=== PATIENT | female | born 1985 | race Caucasian/White ===

== ENCOUNTER → 2018-08-13 | Outpatient (REF) | payer OTHER ==
[2018-08-13 22:09] LABS: CHLAMYDIA DNA AMPLIFICATION NEGATIVE (NEGATIVE); GC DNA AMPLIFICATION NEGATIVE (NEGATIVE)
== END ==
LOC: M SFHCLERA 14:06
PROVIDERS: ATTEND Nurse Practitioner Family
DX: R30.0 Dysuria (principal)

== ENCOUNTER 2018-08-23 11:13 | Emergency (ER) | payer OTHER ==
[~2018-08-23] VITALS: Ht 170.2 cm; Wt 122.7 kg
[2018-08-23] MEDS ORDERED: KETOROLAC 60 MG/2 ML VIAL (J1885) IM ONE (12:00)
[2018-08-23] MEDS ORDERED: ACETAMINOPHEN TAB 650MG DOSE (2X325MG) PO ONE (12:00)
--- NOTE | 2018-08-23 12:44 | REP ---
CT cervical spine without contrast HISTORY: Bone tenderness COMPARISON: None There is no acute fracture or subluxation. There is no disc bulge or herniation. The spinal canal and neural foramina are patent. The intervertebral discs and vertebral bodies are normal in height. IMPRESSION: There is no acute fracture or subluxation. Electronically Signed by Eddie Graf MD 08/23/2018 12:36 P
[2018-08-23] MEDS ORDERED: IBUP-1022 PO (12:54)
[2018-08-23] MEDS ORDERED: CYCL7.5T32 PO (12:54)
[2018-08-23 13:06] VITALS: BP 111/72
== END 2018-08-23 13:20 | disposition home or self-care (01) ==
LOC: M ED 11:13
DX: S29.012A Strain of muscle and tendon of back wall of thorax, initial encounter (principal); X58.XXXA Exposure to other specified factors, initial encounter; Y92.89 Other specified places as the place of occurrence of the external cause; F33.9 Major depressive disorder, recurrent, unspecified; F41.9 Anxiety disorder, unspecified
CPT/HCPCS: 72125; 96372; 99283; J1885

== ENCOUNTER → 2020-02-05 | Outpatient (REF) | payer OTHER, MEDICAID ==
[~2020-02-05] MED LIST: CYCL7.5T32 PO; IBUP-1022 PO
[2020-02-05 17:31] LABS: BASO % 0.3 % (0.0-1.0); EOS # 0.2 10^3/uL (0.0-0.5); EOS % 1.9 % (0.0-3.0); HEMATOCRIT 42.6 % (36.0-47.0); HEMOGLOBIN 13.8 g/dl (12.0-15.5); LYMPH # 1.9 10^3/uL (1.5-5.0); LYMPH % 22.2 % (24.0-44.0); MEAN CORPUSCULAR HEMOGLOBIN 29.2 pg (27.0-33.0); MEAN CORPUSCULAR HGB CONC 32.4 g/dl (32.0-36.5); MEAN CORPUSCULAR VOLUME 90.1 fl (80.0-96.0); MONO # 0.4 10^3/uL (0.0-0.8); NEUTROPHILS % 70.3 % (36.0-66.0); RED BLOOD COUNT 4.73 10^6/uL (4.00-5.40); WHITE BLOOD COUNT 8.6 10^3/uL (4.0-10.0)
[2020-02-05 17:51] LABS: ALBUMIN 3.8 GM/DL (3.2-5.2); ALT/SGPT 25 U/L (12-78); BILIRUBIN,TOTAL 0.5 MG/DL (0.2-1.0); BLOOD UREA NITROGEN 15 MG/DL (7-18); CALCIUM LEVEL 9.2 MG/DL (8.5-10.1); CARBON DIOXIDE LEVEL 24 MEQ/L (21-32); CHLORIDE LEVEL 106 MEQ/L (98-107); CHOLESTEROL LEVEL 220 MG/DL (<200); CHOLESTEROL RISK RATIO 3.492 (<5); CREATININE FOR GFR 0.69 MG/DL (0.55-1.30); GLOMERULAR FILTRATION RATE > 60.0 (>60); GLUCOSE, FASTING 74 MG/DL (70-100); HDL CHOLESTEROL 63 MG/DL (>40); LDL CHOLESTEROL 136 MG/DL (<100); NON-HDL-C 157 MG/DL; SODIUM LEVEL 137 MEQ/L (136-145); TOTAL PROTEIN 7.5 GM/DL (6.4-8.2); TRIGLYCERIDES LEVEL 103 MG/DL (<150)
== END ==
LOC: M LAB REF 16:22
PROVIDERS: ATTEND Physician Assistant
DX: Z68.42 Body mass index [BMI] 45.0-49.9, adult (principal)

== ENCOUNTER → 2020-02-25 | Outpatient (REF) | payer OTHER, MEDICAID | LOC: M LAB REF 16:00 | PROVIDERS: ATTEND Physician Assistant | DX: Z01.419 Encounter for gynecological examination (general) (routine) without abnormal findings (principal) ==

== ENCOUNTER → 2020-06-14 | Outpatient (REF) | payer OTHER, MEDICAID ==
[2020-06-14 16:37] LABS: BASO % 0.4 % (0.0-1.0); EOS # 0.1 10^3/uL (0.0-0.5); EOS % 1.7 % (0.0-3.0); HEMATOCRIT 40.5 % (36.0-47.0); HEMOGLOBIN 13.4 g/dl (12.0-15.5); LYMPH # 2.5 10^3/uL (1.5-5.0); LYMPH % 30.2 % (24.0-44.0); MEAN CORPUSCULAR HGB CONC 33.1 g/dl (32.0-36.5); MEAN CORPUSCULAR VOLUME 90.6 fl (80.0-96.0); MONO # 0.5 10^3/uL (0.0-0.8); MONO % 5.7 % (2.0-8.0); NEUTROPHILS # 5.2 10^3/uL (1.5-8.5); NEUTROPHILS % 61.8 % (36.0-66.0); PLATELET COUNT, AUTOMATED 273 10^3/uL (150-450); RED BLOOD COUNT 4.47 10^6/uL (4.00-5.40); WHITE BLOOD COUNT 8.4 10^3/uL (4.0-10.0)
== END ==
LOC: M LAB REF 16:14
PROVIDERS: ATTEND Physician Assistant
DX: N92.6 Irregular menstruation, unspecified (principal)

== ENCOUNTER → 2020-06-19 | Outpatient (CLI) | payer OTHER, MEDICAID ==
[~2020-06-19] MED LIST changes: +FLUO20CA22; +FLUT44IN INH
== END ==
LOC: M LABSMTC 10:34
PROVIDERS: ATTEND Anesthesiology
DX: Z01.818 Encounter for other preprocedural examination (principal); Z11.52 Encounter for screening for COVID-19

== ENCOUNTER 2020-06-24 07:06 | Day surgery (SDC) | payer OTHER ==
[~2020-06-24] VITALS: Ht 170.2 cm; Wt 138.3 kg
[~2020-06-24 07:06] MED LIST changes: +LIDOCAINE 1% MDV 20ML VIAL SQ PRN; +LR 1,000 ML IV ONE; +ceFAZolin SOD 2 GM in IV 1 EA IV ONE
[2020-06-24] MEDS ORDERED: ONDANSETRON 4MG/2ML VIAL As Ordered ONE (07:56)
[2020-06-24] MEDS ORDERED: propofoL 200 MG/20 ML VIAL As Ordered ONE (07:56)
[2020-06-24] MEDS ORDERED: fentaNYL 100 MCG/2 ML INJECTION (J3010) As Ordered ONE ×2 (07:56→09:09)
[2020-06-24] MEDS ORDERED: LIDOCAINE 2% 100MG/5ML SDV (FOR ANES.) As Ordered ONE (07:56)
[2020-06-24] MEDS ORDERED: MIDAZOLAM INJ 2MG/2ML VIAL (J2250 PER 1MG) As Ordered ONE (07:56)
[2020-06-24] MEDS ORDERED: ROCURONIUM BROMIDE 50 MG/5 ML VIAL As Ordered ONE ×3 (07:56→10:19)
[2020-06-24] MEDS ORDERED: dexameTHASONE 4 MG/ML 1ML VIAL (J1100 PER 1MG) As Ordered ONE (07:57)
[2020-06-24 08:08] LABS: HEMATOCRIT 41.8 % (36.0-47.0); HEMOGLOBIN 14.2 g/dl (12.0-15.5); MEAN CORPUSCULAR VOLUME 88.4 fl (80.0-96.0); PLATELET COUNT, AUTOMATED 280 10^3/uL (150-450); RED BLOOD COUNT 4.73 10^6/uL (4.00-5.40); WHITE BLOOD COUNT 7.9 10^3/uL (4.0-10.0)
[2020-06-24] MEDS ORDERED: METHYLENE BLUE 0.5% (5MG/ML) 10 ML AMP (PROVAYBLUE) As Ordered ONE (08:11)
[2020-06-24] MEDS ORDERED: ACETAMINOPHEN 1000MG 100ML IV BTL (OFIRMEV) (J0131 PER 10MG) As Ordered ONE (09:00)
[2020-06-24] MEDS ORDERED: FLUoxetine 20 MG CAP PO SCH (09:00)
[2020-06-24] MEDS ORDERED: KETOROLAC 60MG 2ML VIAL As Ordered ONE (09:08)
[2020-06-24] MEDS ORDERED: SUGAMMADEX SODIUM 500 MG/5 ML VIAL (BRIDION) As Ordered ONE (09:08)
[2020-06-24] MEDS ORDERED: HYDROmorphone HCL 2 MG/ML 1ML VIAL (J1170) As Ordered ONE (10:24)
[2020-06-24] MEDS ORDERED: ePHEDrine SULFATE 25 MG/5 ML(5MG/ML) SYRINGE As Ordered ONE (11:42)
[2020-06-24] MEDS ORDERED: ALBUTEROL 6.7GM INHALER **FOR ANES. CART/OMNICELL ONLY As Ordered ONE (11:50)
[2020-06-24] MEDS ORDERED: LR 1,000 ML IV SCH ×2 (12:25→12:35)
[2020-06-24] MEDS ORDERED: PERCOCET 5MG/325MG TAB PO PRN (12:25)
[2020-06-24] MEDS ORDERED: ONDANSETRON 4MG/2ML VIAL IV PRN (12:25)
[2020-06-24] MEDS ORDERED: HYDROMORPHONE HCL 0.5 MG/ 0.5 ML SYRINGE (J1170 PER 1) IV PRN (12:25)
[2020-06-24] MEDS ORDERED: METOCLOPRAMIDE INJ 10MG/2ML VIAL (J2765 PER 1) IV PRN (12:25)
[2020-06-24] MEDS ORDERED: fentaNYL 100 MCG/2 ML INJECTION (J3010) IV PRN (12:25)
[2020-06-24] MEDS ORDERED: MORPHINE 1MG/ML IN 0.9% NACL 100ML IV BAG IV PRN (12:30)
[2020-06-24] MEDS ORDERED: NALBUPHINE HCL 10 MG/ML AMP (J2300) IV PRN (12:30)
[2020-06-24] MEDS ORDERED: NALOXONE INJ 0.4MG/1ML VIAL (J2310 PER 1MG) IV PRN (12:30)
[2020-06-24] MEDS ORDERED: diphenhydrAMINE 50MG/ML VIAL (J1200) IV PRN (12:30)
[2020-06-24] MEDS ORDERED: EPIDURAL/PCA KEYS XX PRN (12:30)
[2020-06-24] MEDS ORDERED: MORPHINE 1MG/ML IN 0.9% NACL 100ML IV BAG As Ordered ONE (12:31)
[2020-06-24] MEDS ORDERED: IBUPROFEN 600MG TAB PO PRN (12:35)
[2020-06-24 13:25] VITALS: BP 109/62
[2020-06-24 13:50] VITALS: BP 124/65
[2020-06-24 14:50] VITALS: BP 123/65
[2020-06-24 15:50] VITALS: BP 105/63
[2020-06-24 16:50] VITALS: BP 106/63
[2020-06-24 17:50] VITALS: BP 123/79
[2020-06-24 18:30] LABS: HEMATOCRIT 38.7 % (36.0-47.0); HEMOGLOBIN 12.8 g/dl (12.0-15.5)
[2020-06-25] MEDS ORDERED: NORCO, ANEXSIA 5/325MG TABLET (HYDROcodone/ACETAMINOPHEN) PO PRN (06:00)
--- NOTE | 2020-06-25 13:53 | RO ---
OPERATIVE NOTE DATE OF OPERATION: 06/24/2020 PREOPERATIVE DIAGNOSIS/INDICATIONS FOR SURGERY: Pain, bleeding and failed ablation. POSTOPERATIVE DIAGNOSIS: Pain, bleeding and failed ablation, extensive very atypical adhesions, photos of the case were taken, these atypical adhesions which doubled the length of the case are photographed. PROCEDURE: Robotic-assisted hysterectomy with bilateral salpingectomy, lysis of adhesions and cystourethroscopy. SURGEON: Sherlyn Caceres MD EMBROIDERY PATTERNMAKER: Maame Fernandez ANESTHESIA: General endotracheal anesthesia. BRIEF DESCRIPTION OF PROCEDURE AND FINDINGS: Heydi was brought to the operating room where sufficient general endotracheal anesthesia was induced. She was prepped, draped and positioned in usual sterile fashion. With the uterine manipulator placed the uterus was quite well supported which we already noted in the office and of course [place] with ability to back-fill was placed. We then turned our attention to the abdomen. Transverse semilunar incision was made below the umbilicus, sharp and blunt dissection were continued through subcutaneous tissues to the level of the rectus fascia which was transversely incised and secured with #0 Vicryl retention sutures and then the Paris placed under direct visualization in open laparoscopic technique. CO2 insufflation was then begun. Using the robotic camera the peritoneal cavity was visualized. At first view the most obvious finding was the remarkably abnormal adhesion of the uterus to the anterior abdominal wall, this was not just a simple band along the line of previous section, the entire front of the uterus and the left round ligament were firmly densely adherent without evident plane to the abdominal wall, completely obliterating the anterior cul-de-sac, the anterior peritoneal reflection, any visualization of the location of the bladder, etc. Posteriorly reassuring findings there were a couple adhesions of omentum to the anterior abdominal wall but the overwhelming majority of the adhesions were pelvic in nature. Two left-sided, one right-sided ports were placed. The patient was in Trendelenburg and attention was turned to robotic port. The adhesions of the omentum to the anterior abdominal wall were brought down and attention was turned to the uterus. Since this 34-year-old patient planned on keeping her ovaries, uteroovarian suspensory ligaments were dissected first, trying to decrease the blood supply to this densely adherent uterus and she had had a previous fimbriectomy but salpingectomy for the remainder of her tubes was undertaken. With the dissection of the uteroovarian suspensory ligaments we also dissected the mesentery to keep the tubes with the uterine specimen. On the left side the round ligament was just completely obliterated to the front of the abdomen, it was at first not identifiable but we dissected the uteroovarian suspensory ligament and the mesentery of the tube and then went to the right side and were able to do the same dissection and then dissect the round which was only partially obliterated there. Photos show that the adherence of the uterus to the anterior abdominal wall started well at the fundus and beyond the insertion of the round ligament and thus beyond the upper pole of the uterine vascular supply and so very, very carefully had to dissect some of this down to even identify the round ligament on the left side. Because we could also not see a plane to identify the location of bladder we worked primarily just with the cold scissors and using the bipolar for any vessels that were identified. There were some accessory vessels that were fairly well developed at the level of the fundus and these were cleared. We were able to see some minor adhesions of the left colon that were taken down and we were able to see the ureters bilaterally so we knew that we were well away from them of course with the anterior dissection. We were able to take care of some of those vessels but the dissection was absolutely slow and done just with the cold scissors and at multiple points as we worked along we back-filled the bladder which reached almost to the level of the fundus, we had gotten sort of into the peritoneal plane and there were so many dense adhesions we actually above the bladder on the peritoneal side rather than on the uterine side and had to backtrack based on this back-filling and could not actually see any leakage from the bladder but we knew that we were close and of course we were not using cautery. Decision was made to do some bladder evaluation after the case because her bladder had absolutely no room to fill. The retroperitoneal portion did reach the fundus which was a good way of the way up the anterior abdominal wall but it was really limited space, certainly atypically small with the uterus just so densely adherent it would have to be uncomfortable every time her bladder filled which was consistent with the patient's report that her pain was just not relieved with her ablation even though her cycles were general engineer. As we continued the dissection we had to do the uterine vasculature in several levels individually because we really could not develop a plane anteriorly. We went ahead and dissected the peritoneum off posteriorly and labeled the reflection over in the midline where the colpotomy would need to be just to akil the anatomy. As we worked we did get some level of oozing but I felt that this was preferable to using cautery because we were working so close to the bladder. We just worked millimeter by millimeter through these tissues periodically placing them under tension again and confirming that we were on the right plane and we never really reached a point where we found a ready reflection or ran into an area where the anterior uterine peritoneum was visible. It was not visible for any portion of the case or when the uterus was removed but we did not appear to be leaving a great deal of the uterine tissue behind and specimen is consistent with that. Again we back-filled the bladder multiple times and just filled it up as we went and then let it down so that we could be sure of that side of the plane and we were able to isolate the uterine vasculature a little bit higher than where we saw the cuff posteriorly but at least getting that main level of the uterines, again we had to get them in several levels just to try to keep control of the bleeding in the case. When we had them reasonably low and started the colpotomy posteriorly so that we could then have a firm grasp of where we needed to be anteriorly and then just carefully again dissecting with cold scissors, no cautery, working our way through these tissues until we could get low enough that we could complete full circumferential colpotomy and free the uterus and cervix and of course the attached tubes. The uterus was then delivered into the vagina. We sewed the vaginal cuff. There was an area of oozing on the right side that also had to be oversewn and then we irrigated copiously multiple times, suctioned, irrigated, suctioned and suction irrigated. We also put some ___ over the cuff just because there was so much more raw space than typical and was not particularly oozing but I was afraid that when her bladder filled it would and I wanted to minimize any oozing and speed up healing there. Before we laid that down we back-filled the bladder with methylene blue colored dye and put in several hundred mL to watch these tissues. We did not have any leakage of methylene blue but because of the very atypical adhesions which at least doubled the length of the case and were so abnormal and close to the bladder which was fairly high on the anterior abdominal wall as a result as well, so due to the patient's atypical anatomy we also decided to do cystourethroscopy. This was carried out. We could see some bruising on the bladder but again normal jets of urine from both ureters and no perforation at either of these checks. The procedure was ended. We had already undocked the robot before we scoped her. We closed the wounds with #0 Vicryl retention sutures at the umbilicus were used to close the fascia there for the Paris, and then the 8 mm ports and the umbilicus skin were closed with subcuticular stitch of 3-0 Vicryl with good approximation and hemostasis achieved. Dry, sterile dressings were applied. ESTIMATED BLOOD LOSS: About 100 mL. FLUID REPLACEMENT: Crystalloid. COMPLICATIONS: None. CONDITION AND DISPOSITION: Heydi tolerated the procedure well and was recovering in the recovery room in good condition.
== END 2020-06-24 19:30 | disposition home or self-care (01) ==
LOC: M SDC 07:06 → M MS5PR 13:15 → M SDC 19:30
PROVIDERS: ATTEND Obstetrics & Gynecology
DX: N93.9 Abnormal uterine and vaginal bleeding, unspecified (principal); K66.0 Peritoneal adhesions (postprocedural) (postinfection); K58.8 Other irritable bowel syndrome; J45.909 Unspecified asthma, uncomplicated; E66.9 Obesity, unspecified; Z88.0 Allergy status to penicillin; G43.909 Migraine, unspecified, not intractable, without status migrainosus; E07.9 Disorder of thyroid, unspecified; Z79.899 Other long term (current) drug therapy
CPT/HCPCS: 36415; 49329; 58571; 81025; 85014; 85018; 85027; 86850; 86900; 86901; 88307; J0131; J0690; J1100; J1170; J1885; J2250; J2405; J3010; Q9968; S2900

== ENCOUNTER → 2021-03-17 | Outpatient (CLI) | payer OTHER ==
[~2021-03-17] MED LIST changes: -LIDOCAINE 1% MDV 20ML VIAL SQ PRN; -LR 1,000 ML IV ONE; -ceFAZolin SOD 2 GM in IV 1 EA IV ONE
[2021-03-17 18:31] LABS: HEMOGLOBIN A1c 5.1 %
[2021-03-17 18:48] LABS: BLOOD UREA NITROGEN 14 MG/DL (7-18); CALCIUM LEVEL 9.1 MG/DL (8.5-10.1); CARBON DIOXIDE LEVEL 27 MEQ/L (21-32); CHLORIDE LEVEL 107 MEQ/L (98-107); CREATININE FOR GFR 0.69 MG/DL (0.55-1.30); ESTRADIOL 122.2 PG/ML; GLOMERULAR FILTRATION RATE > 60.0 (>60); GLUCOSE, FASTING 118 MG/DL (70-100); LUTEINIZING HORMONE 2.2 mIU/mL; POTASSIUM SERUM 4.3 MEQ/L (3.5-5.1); PROGESTERONE 13.67 NG/ML; SODIUM LEVEL 140 MEQ/L (136-145)
[2021-03-17 18:49] LABS: FOLLICLE STIMULATING HORMONE 5.8 mIU/mL
== END ==
LOC: M LAB 17:02
PROVIDERS: ATTEND Physician Assistant
DX: R61 Generalized hyperhidrosis (principal)

== ENCOUNTER → 2021-10-11 | Outpatient (CLI) | payer OTHER | LOC: M RAD 10:29 | PROVIDERS: ATTEND Surgery | DX: E66.01 Morbid (severe) obesity due to excess calories (principal); Z86.39 Personal history of other endocrine, nutritional and metabolic disease ==